=== PATIENT | male | born 1970 | race Caucasian/White ===

== ENCOUNTER 2023-06-25 14:08 | Outpatient (OUT) | payer OTHER, SELFPAY ==
--- NOTE | 2023-06-25 | XR_ITS ---
The [address] [address] Patient Name: SHANKAR SHAVER MRN: [id number] date: 1970 Sex: M Assigned Patient Location: [facility] Current Patient Location: [facility] Accession/Order Number: [id number] Exam Date: 06/25/2023 14:45 Report Date: 06/25/2023 15:46 At the request of: JUDY MCKEON Procedure: XR elbow ALVARO min 3v EXAMINATION: XR elbow ALVARO min 3v HISTORY: POLYARTHRITIS COMPARISON: No relevant comparison available. FINDINGS: RIGHT FINDINGS: BONES: No acute fracture or dislocation. Moderate osteoarthritis with joint space narrowing marginal osteophyte formation and enthesopathic spurring. Cortical protuberance medial humeral distal diaphysis likely an osteochondroma SOFT TISSUES: Negative. No visible soft tissue swelling. OTHER: Negative. LEFT FINDINGS: BONES: No acute fracture or dislocation. Moderate osteoarthritis with joint space narrowing marginal osteophyte formation and enthesopathic spurring. Cortical protuberance medial humeral distal diaphysis likely an osteochondroma SOFT TISSUES: Negative. No visible soft tissue swelling. OTHER: Negative. XR/XR elbow ALVARO min 3v IMPRESSION: RIGHT CONCLUSION: Moderate osteoarthritis LEFT CONCLUSION: Moderate osteoarthritis Electronically authenticated by: TSERING ELY Date: 06/25/2023 15:46
--- NOTE | 2023-06-25 14:23 | XR_ITS ---
The [address] [address] Patient Name: SHANKAR SHAVER MRN: [id number] date: 1970 Sex: M Assigned Patient Location: [facility] Current Patient Location: [facility] Accession/Order Number: [id number] Exam Date: 06/25/2023 14:35 Report Date: 06/25/2023 15:31 At the request of: JUDY MCKEON Procedure: XR hand ALVARO min 3v EXAMINATION: XR hand ALVARO min 3v HISTORY: Polyarthritis COMPARISON: No relevant comparison available. FINDINGS: RIGHT FINDINGS: BONES: No acute fracture or dislocation. Minimal degenerative changes with mild joint space narrowing medial carpus SOFT TISSUES: Negative. No visible soft tissue swelling. OTHER: Negative. LEFT FINDINGS: BONES: No acute fracture or dislocation. Minimal degenerative changes with mild joint space narrowing medial carpus SOFT TISSUES: Negative. No visible soft tissue swelling. OTHER: Negative. XR/XR hand ALVARO min 3v IMPRESSION: RIGHT CONCLUSION: Minimal degenerative change LEFT CONCLUSION: Minimal degenerative change Electronically authenticated by: TSERING ELY Date: 06/25/2023 15:31
== END 2023-06-25 14:09 | disposition home or self-care (01) ==
LOC: RAD 14:09
PROVIDERS: PCP Family Medicine; Visit Provider Internal Medicine Rheumatology
DX: M13.0 Polyarthritis, unspecified (principal)
CPT/HCPCS: 73080; 73130